=== PATIENT | female | born 1975 | race Caucasian/White ===

== ENCOUNTER 2016-10-08 09:36 | Emergency (ER) | END 2016-10-08 10:52 | disposition home or self-care (01) | DX: R35.0 Frequency of micturition (principal); M54.9 Dorsalgia, unspecified; J45.909 Unspecified asthma, uncomplicated | CPT/HCPCS: 81003; 96372; J1885; Z7502 ==

== ENCOUNTER 2018-01-23 14:31 | Emergency (ER) | END 2018-01-23 18:02 | disposition home or self-care (01) ==